=== PATIENT | male | born 1965 | race African-American/Black ===

== ENCOUNTER → 2019-05-06 | Outpatient (CLI) | payer BC, OTHER | LOC: RAD 10:46 | DX: M25.462 Effusion, left knee (principal); M25.762 Osteophyte, left knee ==

== ENCOUNTER → 2020-03-01 | Outpatient (CLI) | payer BC, OTHER | LOC: RAD 11:29 | PROVIDERS: ATTEND Family Medicine | DX: M19.011 Primary osteoarthritis, right shoulder (principal) ==